=== PATIENT | female | born 1955 | race Two or more races ===

== ENCOUNTER 2024-02-16 07:50 | Day surgery (SDC) | payer OTHER, SELFPAY ==
--- NOTE | 2024-02-12 06:00 | EKG_ITS ---
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
[2024-02-12 12:03] VITALS: BMI 27.8
[2024-02-12 13:12] LABS: Basophils % (Auto) 1 % (0-2.5); Eosinophils # (Auto) 0.1 Thou/mm3 (0.0-0.5); Eosinophils % (Auto) 1 % (0-10); Hematocrit 43.1 % (36.0-46.0); Hemoglobin 14.1 g/dL (12.0-16.0); Immature Granulocytes % (Auto) 0 % (0-0); Immature Granulocytes Auto 0.03 Thou/mm3 (0.00-0.00); Lymphocytes # (Auto) 1.7 Thou/mm3 (1.0-4.8); Lymphocytes % (Auto) 22 % (10-50); Mean Corpuscular HGB Conc 32.7 g/dl (31.0-37.0); Mean Corpuscular Hemoglobin 26.9 pg (25.0-35.0); Mean Corpuscular Volume 82 fL (80-100); Monocytes # (Auto) 0.7 Thou/mm3 (0.0-0.8); Monocytes % (Auto) 9 % (0-12); Neutrophils # (Auto) 5.3 Thou/mm3 (1.8-7.7); Neutrophils % (Auto) 67 % (37-80); Nucleated Red Blood Cell % 0 /100 WBC (0); Platelet Count 270 Thou/mm3 (140-440); RDW Standard Deviation 39.6 fL (36.4-46.3); Red Blood Count 5.24 Miln/mm3 (4.00-5.20); White Blood Count 7.9 Thou/mm3 (3.6-11.0)
[2024-02-12 13:35] LABS: Alanine Aminotransferase 13 U/L (10-49); Albumin, Serum 4.3 gm/dL (3.4-4.8); Albumin/Globulin Ratio 1.3 (1.2-2.2); Alkaline Phosphatase 81 U/L (46-116); Anion Gap 7 (7-16); Aspartate Amino Transferase 17 U/L (0-34); BUN/Creatinine Ratio 21 Ratio (12-20); Bilirubin,Total 0.5 mg/dL (0.3-1.2); Blood Urea Nitrogen 15 mg/dL (9-23); Calcium 9.9 mg/dL (8.3-10.6); Calcium (Corrected) 9.9 mg/dL (8.5-10.1); Carbon Dioxide 26.7 mMol/L (20.0-31.0); Chloride 106 mMol/L (98-107); Creatinine (Component) 0.7 mg/dL (0.6-1.3); Estimated Creatinine Clearance 68.2 mL/min (>60); Globulin 3.2 gm/dL (2.3-3.5); Glucose 122 mg/dL (74-106); INR 0.9 (0.9-1.3); Osmolality,Calculated 281 (275-295); Potassium 3.8 mMol/L (3.4-5.1); Prothrombin Time 10.3 Seconds (9.0-12.2); Sodium 140 mMol/L (136-145); Total Protein 7.5 gm/dL (5.7-8.2); eGFR > 60 See Note
--- NOTE | 2024-02-15 15:21 | SUR.PREOP ---
Neddle localization will be done in ultrasound, comfirm with Alberto.
[2024-02-16] VITALS (9 sets, daily range): BP systolic 133–166; BP diastolic 77–99; PULSE 73–87; RESP 13–20; TEMP 36.1–36.4; O2SAT 95–99; BMI 27.0
--- NOTE | 2024-02-16 | XR_ITS ---
Examination: Mammogram breast tissue specimen TECHNIQUE: Single mammographic view breast tissue specimen February 16, 2024 1350 p.m. INDICATIONS: Status post excision biopsy positive for carcinoma lesion 3:00 position left breast FINDINGS: Nodule is present in the lateral portion of the breast specimen with margins Possible additional nodule in the right portion of the breast IMPRESSION: One and possibly 2 nodules in the breast tissue specimen
--- NOTE | 2024-02-16 | XR_ITS ---
Examination: Mammogram breast tissue specimen TECHNIQUE: Single mammographic view breast tissue specimen Exam date and time: February 16, 2024 1408 hours INDICATIONS: Status post excision suspicious nodule left breast, noted on left breast sonogram December 18, 2023 FINDINGS: Nodule is present in the upper portion of the specimen with margins IMPRESSION: Nodule is present in the upper portion of the specimen with margins
--- NOTE | 2024-02-16 08:26 | XR_ITS ---
Examination: Ultrasound-guided needle localization 11:00 nodule left breast Left breast sonography Exam date and time: 08/17/2023 0943 hours INDICATIONS: Suspicious nodule BI-RADS 4 left breast 11:00 position TECHNIQUE AND FINDINGS: Informed consent provided. Skin prepped over the breast and sterile drape applied hand hygiene 1% lidocaine administered for local anesthesia Utilizing ultrasonographic guidance 5 cm Kopan's needle placed in the suspicious nodule 11:00 position left breast 1 cc methylene blue introduced Require introduced and needle withdrawn Estimated blood loss 1 cc IMPRESSION: Ultrasound-guided needle localization as above
--- NOTE | 2024-02-16 08:28 | XR_ITS ---
Examination: Nuclear medicine lymph glands imaging [place] lymph node study Exam date and time: February 16, 2024 0828 hours INDICATIONS: Biopsy-positive for carcinoma lesion left breast on left breast biopsy study 01/13/2024, preop agent and lymph node dissection TECHNIQUE AND FINDINGS: Informed consent provided. Timeout performed. Skin prepped over the left breast and sterile drape applied hand hygiene 1% lidocaine administered subareolar followed by introduction of 2.0 mCi technetium 99m filtered sulfur colloid No imaging Estimated blood loss 0 cc IMPRESSION: Successful preoperative sentinel lymph node study left breast as above
[2024-02-16] MEDS: RINGERS LACTATED 1000 ML 1,000 ML 20 ML IV (08:44)
--- NOTE | 2024-02-16 14:52 | ESOP_ITS ---
Date of Procedure 02/16/24 Pre Op Diagnosis Infiltrating ductal carcinoma of the left breast at 3 o'clock position Post Op Diagnosis Same Benign lesion at 11 o'clock position on the left breast localized by the radiologist with a guidewire Procedure Partial mastectomy of the infiltrating ductal carcinoma of the left breast with sentinel node biopsy Excision of the suspicious mass at 11 o'clock position on the left breast after localization Findings Patient was found to have biopsy-proven lesion at 3 o'clock position. However the radiologist localized the lesion at 11 o'clock position suspecting that it looks suspicious rather than at 3 o'clock position. The 3 o'clock position nodule was not low. Procedure Description After the patient had an guidewire localization and sentinel node injection at the x-ray she was brought to the operating room. LMA anesthesia was given the left breast and axilla along with the left upper extremity was washed with ChloraPrep solution and draped in a sterile manner. Timeout was performed. Then I started doing the sentinel node biopsy at first. Using a neoprobe I found some activity at the skin crease over the left axilla. I made an incision after injecting local anesthesia with half percent shakira. This incision was about 5 to 6 cm in length and upon dividing the subcutaneous tissue I identified 4 nodes that were positive and showed an uptake by neoprobe. The first node showed an uptake of 900 and others were about 10% of the first 1. Bleeding points were then coagulated carefully and then the axilla was closed with a 3-0 chromic in 2 layers and the skin by 4-0 Monocryl. Then the attention was turned onto the breast where the guidewire localization was unfortunately done to the 11:00 nodule which was more prominent on the ultrasound. However since the biopsy-proven cancer was a 3 o'clock position I made an incision circumareolar areolar fashion and dissected out the tissues. I was able to feel a very tiny nodule and I removed it along the surrounding tissues. An x-ray was obtained to confirm this which was read as radiologist as suspicious nodule. I also asked the pathologist to do a on examination to see if this is cancerous and she felt it was. Then because of the guidewire localization of another nodule I decided to take that out also. Using the same incision I removed the nodule which was approached by using the methylene blue stained tissues. I removed the anterior methylene blue stained tissues along with the guidewire and took an x-ray which showed anterior nodule was removed. It did look benign on the appearance even though it was firm on palpation. Then the bleeding points were controlled and additional tissues were taken from both 11 and 3 o'clock position to make sure the tumor was completely removed. Then a left #10 round Claude-Narayanan drain and closed subcutaneous tissue with 3-0 chromic skin was closed with 4-0 Monocryl and reinforced with 6-0 nylon stitches. Dressing was applied with Adaptic and fluff and compression with extra-large breast binder. Patient tolerated the procedure well and returned to recovery room in stable condition. Anesthesia other Pathology / specimen Other (1. Jennings nodes x 4, #2 lesion at 3 o'clock position, #3 lesion at 11 o'clock position with the guidewire) IVF Infused 800 Estimated Blood Loss 150 Condition Stable Disposition PACU Surgeon Rosina Eaton MD Surgical Staff Operation Date: 02/16/24 12:45 Case Staff Anesthesiologist: Franky Faye RN First Assistant: Mario Lenz
--- NOTE | 2024-02-16 15:02 | SUR.PHASEI ---
Pt arrived to PACU via gurney awake, alert, able to follow commands, breathing unlabored, dressing to left breast clean, dry, and intact with breast binder in place, report from Iwona LYNN and Dr Faye
[2024-02-16] MEDS: fentaNYL CIT INJ 50 mCg/ML AMP 2ML 25 MCG IV (16:02)
--- NOTE | 2024-02-16 16:26 | SUR.PHASEII ---
Pt awake, alert, able to follow commands, breathing unlabored, dressing to left breast clean, dry, and intact with breast binder in place, discharge instructions given with family member present using telephone camp program director Miryam ID# [id number] questions answered, pt able to dress self and ambulate with steady gait to wheelchair, pt discharged via wheelchair with all belongings and copies of discharge paperwork.
== END 2024-02-16 16:26 | disposition home or self-care (01) ==
PROVIDERS: PCP Family Medicine; Referring Provider Surgery; Visit Provider Surgery
PROC: (CPT 19083; principal; 2024-02-16 12:30)
DX: C50.812 Malignant neoplasm of overlapping sites of left female breast (principal); Z01.810 Encounter for preprocedural cardiovascular examination; I10 Essential (primary) hypertension
CPT/HCPCS: 19083; 38500; 38900; 36415; 76098; 80053; 85025; 85610; 85730; 93005; A4648; A4649; A9541; J2250; J2405; J2704; J2765; J3010; J3490; J7120; Q9968

== ENCOUNTER → 2024-03-28 | Outpatient (CLI) | payer OTHER, SELFPAY ==
--- NOTE | 2024-03-28 | XR_ITS ---
Examination: Bone scan whole body, radioisotope Date and time of exam: March 28, 2024 1512 hours INDICATIONS: Diagnosis left breast cancer January 2024, staging Technique: Study has been performed with intravenous administration of 25 mci 99M technetium MDP. Anterior, posterior whole body images are obtained. Images have been obtained including the lower extremities. Findings: Symmetrical isotope accumulation IMPRESSION: No pattern diagnostic for osseous metastatic disease
== END | disposition home or self-care (01) ==
PROVIDERS: PCP Family Medicine; Referring Provider Family Medicine; Visit Provider Family Medicine
DX: C50.112 Malignant neoplasm of central portion of left female breast (principal)
CPT/HCPCS: 78306; A9503

== ENCOUNTER 2024-03-29 13:34 | Outpatient (RCR) | payer OTHER, SELFPAY ==
--- NOTE | 2024-03-20 20:47 | CTCCONSULT_ITS ---
[address] [address] RE: VAN QUINTEROS D.O.B.: 1955 AGE: 68 DATE OF CONSULTATION: 03/16/2024 DIAGNOSIS: New diagnosis of left breast cancer ER/IA positive status postlumpectomy with lymph node d issection showing T1a N0 -stage I 2 mm tumor REFERRING PHYSICIAN: Constantino Gonzalez PRIMARY PHYSICIAN :Constantino Gonzalez REASON FOR CONSULTATION: Follow-up on breast cancer HISTORY OF PRESENT ILLNESS: Patient is 68-year-old woman with likely early stage ER/IA positive left breast cancer. HER2 was neg ative. Patient underwent lumpectomy and is healing from the surgery Patient is here to discuss final report. Patient was never on any hormone replacement therapy. 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 GI: No nausea, vomiting, diarrhea or constipation. CVS: No palpitations or angina pains. Respiratory: No cough, chest pain or shortness of breath. VITAL SIGNS: Date Time PHYSICAL EXAMINATION: Conjunctivae is white Oral cavity is dry. Chest is clear to auscultation. No wheezes or rales audible. CVS: Rhythm regular, no murmurs or gallops present. Abdomen is soft. No hepatosplenomegaly. Extremities: No pedal edema or cyanosis. LABORATORY DATA: Date Time ASSESSMENT: Early stage breast cancer ER/IA positive Patient is status postlumpectomy Final path showed only 2 mm tumor and all sentinel lymph nodes are negative Discussed with her that given her advanced age she is unlikely to get any benefit from radiation I will still place referral to radiation oncology As patient has very small tumor will benefit from 5 years of antiendocrine therapy start on anastrozole 1 mg daily Calcium and vitamin D3 daily with food Bone density scan Patient still have not started her tablet Will see her in 4 weeks to see tolerance to treatment ORDERS: RETURN TO CLINIC: cc: David Gonzalez, Referring: Constantino Gonzalez Electronically Signed {Object.Sanct_Date} at {Object.Sanct_Time} {Object.Sanct_ID*PnP.NameFL@M}, {Object.Sanct_ID*PnP.Suffix@U} Patient: VAN QUINTEROS : 1955 MR#: [id number] Account: [id number] FOLLOW UP NOTE Page 2 of 3
== END 2024-04-02 23:59 | disposition home or self-care (01) ==
LOC: SCTC 13:34
PROVIDERS: PCP Family Medicine; Referring Provider Family Medicine; Visit Provider Radiology Therapeutic Radiology
DX: C50.812 Malignant neoplasm of overlapping sites of left female breast (principal); Z17.0 Estrogen receptor positive status [ER+]; Z17.21 Progesterone receptor positive status; Z17.32 Human epidermal growth factor receptor 2 negative status; Z90.12 Acquired absence of left breast and nipple; Z79.811 Long term (current) use of aromatase inhibitors
CPT/HCPCS: 99212; 99213; G0463

== ENCOUNTER 2024-05-18 11:27 | Outpatient (RCR) | payer MEDICARE, SELFPAY ==
--- NOTE | 2024-08-21 01:54 | CTCFLWUP_ITS ---
Patient: VAN QUINTEROS : 1955 Page 2 of 3 FOLLOW UP NOTE DATE OF SERVICE: 05/18/2024 NAME: VAN QUINTEROS ACCOUNT: [id number] : 1955 AGE: 69 INTERVAL HISTORY: ONCOLOGY HISTORY: DIAGNOSIS: New diagnosis of left breast cancer ER/NH positive status postlumpectomy with lymph node dissection showing T1a N0 -stage I 2 mm tumor DATE OF DIAGNOSIS: PATHOLOGY: STAGE/TNM: TREATMENT HISTORY: Care?Plan Start?Date Cycle Day Intent HISTORY OF PRESENT ILLNESS: Patient is 69-year-old woman with likely early stage ER/NH positive left breast cancer. HER2 was negative. Patient underwent lumpectomy and is healing from the surgery Patient is here to discuss final report. Patient was never on any hormone replacement therapy. 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 anastrozole - 1 mg 1 tab Daily 2. Calcium 600 + D - 600 (1,500)-200 mg-unit 1 tab Daily 3. enalapril maleate - 10 mg 1 tab Daily Medications Last Reconciled by Rere Petersen MA on 05/18/2024 ALLERGIES: codeine sulfate REVIEW OF SYSTEMS: A complete 14-point review of systems was performed and is negative except as noted in interval history. PHYSICAL EXAMINATION: VITAL SIGNS: Temperature?98.2, B/P?131/77, Oxygen?Saturation?96% Weight?147?lbs PAIN: 0 - No pain ECOG Performance Status: 0 - Asymptomatic and fully active GENERAL APPEARANCE: Appears well, in no apparent distress, appropriately interactive. HEENT: Normocephalic, no temporal wasting, normal conjunctiva, no scleral icterus, normal hearing, lips without lesions, neck normal range of motion. CARDIOVASCULAR: Not assessed. PULMONARY: Normal respiratory effort, no respiratory distress or use of accessory muscles, speaking in full sentences, no tachypnea. EXTREMITIES: No pedal edema or cyanosis. SKIN: Normal skin appearance. NEUROLOGIC: Alert and oriented x4. PSHYCHIATRIC: Appropriate affect, mood normal, behavior normal, intact thought and speech. LABORATORY DATA: I have personally reviewed and interpreted each of the patient?s relevant lab tests, abnormal findings are below: Date 02/12/24 ??WHITE?BLOOD?COUNT?(Thou/mm3) 7.9 ??RED?BLOOD?COUNT?(Miln/mm3) 5.24?H ??HEMOGLOBIN?(gm/dl) 14.1 ??HEMATOCRIT?(%) 43.1 ??PLATELET?COUNT?(Thou/mm3) 270 ??NEUTROPHILS?%,?AUTO?(%) 67 ??LYMPH?%,?AUTO?(%) 22 ??NEUTROPHILS,?AUTO?(Thou/mm3) 5.3 ASSESSMENT/PLAN: Early stage breast cancer ER/NH positive Patient is status postlumpectomy Final path showed only 2 mm tumor and all sentinel lymph nodes are negative Discussed with her that given her advanced age she is unlikely to get any benefit from radiation I will still place referral to radiation oncology As patient has very small tumor will benefit from 5 years of antiendocrine therapy start on anastrozole 1 mg daily Calcium and vitamin D3 daily with food Bone scan is negative Bone density scan is pending patient is toleraaitng her medicine well. ORDERS: Cbc,cmp RETURN TO CLINIC: 3 months BILLING AND COMPLIANCE: I reviewed external records from providers outside my specialty as summarized above. I spent a total of 50 minutes on this patient?s care on the day of their visit excluding time spent related to any billed procedures. This time includes time spent with the patient as well as time spent documenting in the medical record, reviewing patients records and tests, obtaining history, placing orders, communicating with other healthcare professionals, counseling the patient, family or caregiver, and/or care coordination for the diagnoses above. Electronically Signed by: Piyush Cannon MD T: 1:51 AM CC: PCP: Constantino Gonzalez Referring: Constantino Gonzalez This document was completed utilizing speech recognition software. Grammatical errors, random word insertions, pronoun errors, and incomplete sentences are an occasional consequence of this system due to software limitations, ambient noise, and hardware issues. Any formal questions or concerns about the content, text or information contained within the body of this dictation should be directly addressed to the provider for clarification.
== END 2024-06-03 23:59 | disposition home or self-care (01) ==
LOC: SCTC 11:27
PROVIDERS: PCP Family Medicine; Referring Provider Family Medicine; Visit Provider Internal Medicine Hematology & Oncology
DX: C50.812 Malignant neoplasm of overlapping sites of left female breast (principal); Z17.0 Estrogen receptor positive status [ER+]; Z17.21 Progesterone receptor positive status; Z17.32 Human epidermal growth factor receptor 2 negative status; Z90.12 Acquired absence of left breast and nipple
CPT/HCPCS: 99212; G0463

== ENCOUNTER → 2024-09-07 | Outpatient (CLI) | payer OTHER, SELFPAY ==
[2024-09-07 10:11] LABS: Alanine Aminotransferase 10 U/L (10-49); Albumin, Serum 4.3 gm/dL (3.4-4.8); Albumin/Globulin Ratio 1.4 (1.2-2.2); Alkaline Phosphatase 71 U/L (46-116); Anion Gap 9 (7-16); Aspartate Amino Transferase 14 U/L (0-34); BUN/Creatinine Ratio 25 Ratio (12-20); Bilirubin,Total 0.5 mg/dL (0.3-1.2); Blood Urea Nitrogen 15 mg/dL (9-23); Carbon Dioxide 26.4 mMol/L (20.0-31.0); Cardiac Risk Estimate 4.7 RATIO (3.7-5.6); Chloride 108 mMol/L (98-107); Cholesterol 199 mg/dL (132-200); Creatinine (Component) 0.6 mg/dL (0.6-1.3); Free T4 (Free Thyroxine) 1.05 ng/dL (0.89-1.76); Glucose 92 mg/dL (74-106); HDL Cholesterol 42 mg/dL (40-60); LDL Cholesterol,Calculated 113 mg/dL (0-130); Osmolality,Calculated 285 (275-295); Sodium 143 mMol/L (136-145); Total Protein 7.3 gm/dL (5.7-8.2); Triglycerides 218 mg/dL (30-150); eGFR > 60 See Note
== END | disposition home or self-care (01) ==
LOC: COPL 08:05
PROVIDERS: PCP Family Medicine; Referring Provider Family Medicine; Visit Provider Family Medicine
DX: E78.1 Pure hyperglyceridemia (principal); E03.2 Hypothyroidism due to medicaments and other exogenous substances; Z13.1 Encounter for screening for diabetes mellitus
CPT/HCPCS: 36415; 80053; 80061; 84439; 84443

== ENCOUNTER 2024-09-17 11:33 | Emergency (ER) | payer OTHER, SELFPAY ==
--- NOTE | 2024-09-17 12:45 | PD.EDRME ---
Rapid Medical Screening Exam RME Arrival date/time: 09/17/24 11:33 Chief Complaint: GI Bleed Time Seen by Provider: 09/17/24 11:48 RME Narrative: This is a 69-year-old female that comes in with complaints of GI bleed that started yesterday. Patient states that she has had multiple bowel movements that bright red blood with clots. Patient complains of some abdominal discomfort. Patient denies any nausea vomiting. Patient has a history of high blood pressure and breast cancer to the right. Patient had surgery last year and is currently on anastrozole. Patient states she did not require chemotherapy because it clotted early. I have greeted and performed a focused initial assessment of this patient. Initial appropriate labs ordered at this time. A comprehensive ED assessment and evaluation of the patient and analysis of all test and completion of medical decision making process will be conducted by additional ED provider.
[2024-09-17 12:48] VITALS: BP 135/75; PULSE 85; RESP 18; TEMP 36.9; O2SAT 97; BMI 27.1
[2024-09-17 13:18] LABS: Basophils % (Auto) 0 % (0-2.5); Eosinophils % (Auto) 0 % (0-10); Hematocrit 37.8 % (36.0-46.0); Hemoglobin 12.9 g/dL (12.0-16.0); Immature Granulocytes % (Auto) 0 % (0-0); Immature Granulocytes Auto 0.03 Thou/mm3 (0.00-0.00); Lymphocytes % (Auto) 18 % (10-50); Mean Corpuscular HGB Conc 34.1 g/dl (31.0-37.0); Mean Corpuscular Hemoglobin 27.2 pg (25.0-35.0); Mean Corpuscular Volume 80 fL (80-100); Monocytes # (Auto) 0.7 Thou/mm3 (0.0-0.8); Monocytes % (Auto) 6 % (0-12); Neutrophils # (Auto) 8.4 Thou/mm3 (1.8-7.7); Neutrophils % (Auto) 75 % (37-80); Nucleated Red Blood Cell % 0 /100 WBC (0); Platelet Count 285 Thou/mm3 (140-440); RDW Standard Deviation 36.8 fL (36.4-46.3); Red Blood Count 4.75 Miln/mm3 (4.00-5.20); White Blood Count 11.2 Thou/mm3 (3.6-11.0)
[2024-09-17 13:34] LABS: Prothrombin Time 10.9 Seconds (9.0-12.2)
[2024-09-17 13:49] LABS: Alanine Aminotransferase 9 U/L (10-49); Albumin, Serum 4.4 gm/dL (3.4-4.8); Albumin/Globulin Ratio 1.4 (1.2-2.2); Alkaline Phosphatase 73 U/L (46-116); Anion Gap 10 (7-16); Aspartate Amino Transferase 14 U/L (0-34); BUN/Creatinine Ratio 22 Ratio (12-20); Bilirubin,Total 0.7 mg/dL (0.3-1.2); Blood Urea Nitrogen 13 mg/dL (9-23); Carbon Dioxide 25.1 mMol/L (20.0-31.0); Chloride 106 mMol/L (98-107); Creatinine (Component) 0.6 mg/dL (0.6-1.3); Estimated Creatinine Clearance 77.3 mL/min (>60); Globulin 3.2 gm/dL (2.3-3.5); Glucose 98 mg/dL (74-106); Osmolality,Calculated 281 (275-295); Potassium 4.1 mMol/L (3.4-5.1); Sodium 141 mMol/L (136-145); Total Protein 7.6 gm/dL (5.7-8.2); eGFR > 60 See Note
--- NOTE | 2024-09-17 14:37 | EDNOTE_ITS ---
ED GI Bleed RME/HPI General Chief complaint: GI Bleed Stated complaint: BLOOD IN STOOL X YESTERDAY Time Seen by Provider: 09/17/24 11:48 Arrival date/time: 09/17/24 11:33 RME / HPI RME / HPI Narrative: 69-year-old female that comes in with complaints of GI bleed that started yesterday. Patient states that she has had multiple bowel movements that bright red blood with clots. Patient complains of some abdominal discomfort. Patient denies any nausea vomiting. Patient has a history of high blood pressure and breast cancer to the right. Patient had surgery last year and is currently on anastrozole. Denies any vomiting. Denies any similar episode in the past. Denies any dizziness. She is not taking any blood thinner. Related Data Home Medications ?Medication ?Instructions ?Recorded ?Confirmed enalapril maleate 10 mg tablet 10 mg PO QDAY 10/18/20 02/16/24 Allergies Allergy/AdvReac Type Severity Reaction Status Date / Time CODEINE AdvReac Mild Anxiety Uncoded 09/17/24 11:35 Review of Systems Review of Systems Narrative Review of Systems: Review of system reviewed and within normal limits except mentioned in HPI ED Exam Narrative Physical exam: VITAL SIGNS: Reviewed. GENERAL APPEARANCE: Alert and interactive, follows commands, no acute distress, HEAD AND FACE: Non-traumatic. ENT: PERRL, pink conjunctivitis, eyelid no trauma, Mucous membrane moist. NECK: Supple, nontender, no nuchal rigidity. CHEST: No tenderness, no crepitus, no paradoxical movement, no retractions. LUNGS: Clear, well ventilated, symmetric, no rales, no wheezing, no ronchi, no stridor, good breath sounds bilaterally. HEART: Regular rate, regular rhythm, no murmur, no gallops. ABDOMEN: Soft, positive bowel sounds, nondistended, no guarding, nontender, no rebound, no masses, RECTAL: Deferred. GENITAL: Deferred. NEUROLOGICAL: Gross motor function intact sensory function intact, Appropriate for age. MUSCULOSKELETAL: low back nontender, full range of motion. EXTREMITIES: Nontender, full range of motion. SKIN: Color pink, dry, no rash, no lacerations, no abrasions, no contusions. LYMPHATICS: Deferred. Course Quality Measures none Orders Category Date Time Status CBC Stat Lab 09/17/24 12:55 Completed Comprehensive Metabolic Panel Stat Lab 09/17/24 12:55 Completed PT [Prothrombin Time with INR] Stat Lab 09/17/24 12:55 Completed Type and Screen Stat Lab 09/17/24 12:55 Completed Vital Signs Vital signs: Vital Signs Temperature 98.4 F 09/17/24 12:48 Pulse Rate 85 09/17/24 12:48 Respiratory Rate 18 09/17/24 12:48 Blood Pressure 135/75 H 09/17/24 12:48 Pulse Oximetry (%) 97 09/17/24 12:48 Oxygen Delivery Method Room Air 09/17/24 12:48 GI Bleed MDM Narrative MDM Narrative:: 69-year-old female that comes in with complaints of GI bleed that started yesterday. Patient states that she has had multiple bowel movements that bright red blood with clots. Patient complains of some abdominal discomfort. Patient denies any nausea vomiting. Patient has a history of high blood pressure and breast cancer to the right. Patient had surgery last year and is currently on anastrozole. Denies any vomiting. Denies any similar episode in the past. Denies any dizziness. She is not taking any blood thinner. Patient's CBC came back unremarkable and there is no sign of anemia. Clinically patient is not having any symptoms. Patient is not taking any blood thinner. Patient was advised to follow-up with PCP and as per referral to GI specialist for outpatient colonoscopy. To rule out the source of the bleeding. Was also advised to return to emergency room for worsening of symptoms. Patient data External records reviewed:: None Clinical information provided by:: patient and family Social determinants that could affect healthcare access:: none Patient has the following chronic illnesses:: Breast cancer, hypertension How is presenting disease/condition affected by chronic disease/condition?: uneffected by Evaluation data The following diagnostics were reviewed and interpreted by me:: lab results Lab and/or radiology exams considered but not ordered:: None Interpretation Summary: See resulted MDM Medications / Prescriptions Medications or Prescriptions considered but not ordered:: None Medication administrations:: None Consultations Consultation(s) initiated? (list below): No Diagnosis GI bleed differential diagnosis: Lower gastrointestinal hemorrhage, hematochezia and melena Most likely diagnosis given after review of the tests above:: BRight red blood per rectum Admission Indicated Admission indicated?: not indicated Admission Request Was there a request for admission?: No Disposition Plan Disposition Plan: Discharge Discharge Attestation Discharge Attestation: The patient and all family members were given an opportunity to ask questions and understood the discharge instructions. Discharge instructions specifically effects, indications for sooner follow up or return to the emergency department, and the expected course of current diagnosis. Patient condition: Stable Discharge Plan Plan Patient Disposition: HOME (Self Care) Discharge Disposition comment: Stable Prescriptions/Referrals Prescriptions/Med Rec: No Action enalapril maleate 10 mg tablet 10 mg PO QDAY Patient Comments: TAKE 1 TABLET BY MOUTH EVERY DAY Referrals: Constantino Gonzalez MD [Primary Care Provider] - In 1 week Problem List Clinical Impression: Bright red blood per rectum Patient/Caregiver Discharge Instructions Discharge Activity: activity as tolerated Education Materials: Understanding Rectal Bleeding Additional Instructions: Thank you for the opportunity for serving you today. You are stable for discharged . You are advised to: Follow-up with your PCP in 1 to 2 days Return to ED for worsening of symptoms Increase oral fluids Please ask your PCP to refer you to GI specialist for possible outpatient colonoscopy Print Language: Citizen Of [place] Stand Alone Forms: [facility] Award Info., Patient Portal Info Letter
== END 2024-09-17 15:11 | disposition home or self-care (01) ==
PROVIDERS: Nurse Practitioner Family; Emergency Provider Emergency Medicine; PCP Family Medicine
DX: K92.1 Melena (principal); Z85.3 Personal history of malignant neoplasm of breast
CPT/HCPCS: 36415; 80053; 85025; 85610; 86850; 86900; 86901; 99283

== ENCOUNTER → 2024-10-18 | Outpatient (CLI) | payer OTHER, SELFPAY ==
--- NOTE | 2024-10-18 13:00 | XR_ITS ---
Examination: Bone densitometry Date and time of exam:October 18, 2024 1300 hours INDICATIONS: Hysterectomy age 38 vitamin D and calcium several months, personal history left breast cancer Technique: Lumbar spine and hip total bone mineralization values of an calculated. Peak reference and age match control results have been displayed. Findings: Lumbar spine total bone mineralization is1.104 gm/cm2. This is 0.5 standard deviations above peak reference. This is 2.7 standard deviations above age-matched controls. Hip total bone mineralization is 1.013 gm/cm2 This is 0.4 standard deviations above peak reference. This is 1.9 standard deviations above age-matched controls Impression: There is normal mineralization based on lumbar spine measurements. There is normal mineralization based on hip measurements Lumbar mineralization is decreased 0.7% compared with October 09, 2022 Hip mineralization is increase 6.4% compared with October 09, 2022
== END | disposition home or self-care (01) ==
LOC: CDIM 12:31
PROVIDERS: PCP Family Medicine; Referring Provider Internal Medicine Hematology & Oncology; Visit Provider Internal Medicine Hematology & Oncology
DX: C50.912 Malignant neoplasm of unspecified site of left female breast (principal)
CPT/HCPCS: 77080

== ENCOUNTER → 2024-11-03 | Outpatient (CLI) | payer OTHER, SELFPAY ==
--- NOTE | 2024-11-03 09:00 | XR_ITS ---
Examination: Diagnostic digital mammography, bilateral Computer aided detection 3-D breast Tomosynthesis, bilateral Date and time of exam: November 03, 2024 at 0901 hours Compared to mammograms dating to October 09, 2022 Technique: Nonmagnified MLO, CC views of the breasts to been obtained, reconstructed from 3-D Tomosynthesis images. R2 computer aided detection program utilized for evaluation of suspicious masses and/or abnormal calcifications. 3-D Tomosynthesis images obtained. Findings: Scattered areas of fibroglandular density. 11 mm nodule partially indistinct margins upper outer left breast mid to anterior depth Benign calcifications Impression: BI-RADS Category 0: Incomplete: Need additional imaging evaluation Recommend follow-up spot tomographic views of 11 mm nodule partially indistinct margins upper outer left breast as well as left breast sonography to complete the workup.
== END | disposition home or self-care (01) ==
LOC: CDIM 08:37
PROVIDERS: Referring Provider Family Medicine; Visit Provider Family Medicine
DX: N63.21 Unspecified lump in the left breast, upper outer quadrant (principal)
CPT/HCPCS: 77062; 77066; G0279

== ENCOUNTER 2024-11-09 10:55 | Day surgery (SDC) | payer OTHER, SELFPAY ==
[2024-11-09] VITALS (11 sets, daily range): BP systolic 108–162; BP diastolic 58–87; PULSE 70–104; RESP 14–20; TEMP 36.3–37.1; O2SAT 95–100; BMI 27.9
[2024-11-09] MEDS: fentaNYL CIT INJ 50 mCg/ML AMP 2ML (ASD USE ONLY) IVP (12:38)
[2024-11-09] MEDS: SODIUM CHLORIDE 0.9% 500 ML 500 ML 20 ML IV (12:38)
[2024-11-09] MEDS: MIDAZOLAM INJ 1 MG/ML VIAL 2 ML (ASD USE ONLY) 2 MG IVP (12:38)
== END 2024-11-09 13:35 | disposition home or self-care (01) ==
PROVIDERS: PCP Family Medicine; Referring Provider Specialist; Visit Provider Specialist
PROC: 0DBE8ZX Excision of Large Intestine, Via Natural or Artificial Opening Endoscopic, Diagnostic (ICD-10-PCS; CPT 45380; principal; 2024-11-09 11:45)
DX: K64.2 Third degree hemorrhoids (principal); K57.31 Diverticulosis of large intestine without perforation or abscess with bleeding; I10 Essential (primary) hypertension; C50.912 Malignant neoplasm of unspecified site of left female breast; Z80.0 Family history of malignant neoplasm of digestive organs
CPT/HCPCS: 45398; A4649; J1200; J2250; J3010; J7999

== ENCOUNTER 2024-11-24 13:09 | Outpatient (RCR) | payer OTHER, SELFPAY ==
--- NOTE | 2024-11-28 06:37 | CTCFLWUP_ITS ---
Patient: VAN QUINTEROS : 1955 Page 3 of 5 FOLLOW UP NOTE DATE OF SERVICE: 11/24/2024 NAME: VAN QUINTEROS ACCOUNT: [id number] : 1955 AGE: 69 INTERVAL HISTORY: Subjective: Van Quinteros, a Macedonian-speaking patient with a history of breast cancer, presents for follow-up regarding an 11-millimeter nodule found on a recent mammogram of her left breast. She has an ultrasound appointment scheduled for December 01 to further evaluate this finding. Ms. Quinteros reports a recent episode of rectal bleeding that prompted her to visit the emergency room. She underwent a colonoscopy due to this concern, but the results were negative for any significant findings. The patient expresses that she was very scared when she noticed the bleeding. She has been experiencing constipation and has been diagnosed with third-degree hemorrhoids and extensive diverticulosis. Regarding her breast cancer treatment, Ms. Quinteros is currently taking anastrozole and reports no side effects from the medication. She mentions taking vitamin D daily with lunch and dinner. A recent bone density scan revealed some weakness in her bones. Medical History - Diverticulosis of the intestine - 3rd-degree hemorrhoids - Constipation - Osteopenia (implied by Bones are a little bit weak ) - History of rectal bleeding, attributed to hemorrhoids Surgical History - Colonoscopy (date not specified) Medications and Supplements - Anastrozole - Vitamin D - Takes every day with lunch and dinner Social History - Diet: Reports not drinking a lot of water and not eating many vegetables. Current diet includes meat, tortillas, rice, and beans. - Language: Does not speak Armenian, requires diplomatic interpreter/translator Review of Systems Gastrointestinal: Positive for constipation, hemorrhoids, and rectal bleeding. Objective: Laboratory, Imaging, and Diagnostic Test Results - Mammogram: 11-millimeter nodule in the left breast - Colonoscopy: Negative for abnormalities - Bone density scan: Bones reported as a little bit weak ONCOLOGY HISTORY: DIAGNOSIS: New diagnosis of left breast cancer ER/DE positive status postlumpectomy with lymph node dissection showing T1a N0 -stage I 2 mm tumor DATE OF DIAGNOSIS: STAGE/TNM: TREATMENT HISTORY: Care?Plan Start?Date Cycle Day Intent HISTORY OF PRESENT ILLNESS: Patient is 69-year-old woman with likely early stage ER/DE positive left breast cancer. HER2 was negative. Patient underwent lumpectomy and is healing from the surgery Patient is here to discuss final report. Patient was never on any hormone replacement therapy. 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 anastrozole - 1 mg 1 tab Daily 2. Calcium 600 + D - 600 (1,500)-200 mg-unit 1 tab Daily 3. enalapril maleate - 10 mg 1 tab Daily Medications Last Reconciled by Christie Ford MA on 11/24/2024 ALLERGIES: codeine sulfate REVIEW OF SYSTEMS: A complete 14-point review of systems was performed and is negative except as noted in interval history. PHYSICAL EXAMINATION: VITAL SIGNS: Temperature?99.5, B/P?126/72, Oxygen?Saturation?99% PAIN: 0 - No pain GENERAL APPEARANCE: Appears well, in no apparent distress, appropriately interactive. HEENT: Normocephalic, no temporal wasting, normal conjunctiva, no scleral icterus, normal hearing, lips without lesions, neck normal range of motion. CARDIOVASCULAR: Not assessed. PULMONARY: Normal respiratory effort, no respiratory distress or use of accessory muscles, speaking in full sentences, no tachypnea. EXTREMITIES: No pedal edema or cyanosis. SKIN: Normal skin appearance. NEUROLOGIC: Alert and oriented x4. PSHYCHIATRIC: Appropriate affect, mood normal, behavior normal, intact thought and speech. LABORATORY DATA: I have personally reviewed and interpreted each of the patient?s relevant lab tests, abnormal findings are below: Date 02/12/24 09/07/24 09/17/24 ??WHITE?BLOOD?COUNT?(Thou/mm3) 7.9 ? 11.2?H ??RED?BLOOD?COUNT?(Miln/mm3) 5.24?H ? 4.75 ??HEMOGLOBIN?(gm/dl) 14.1 ? 12.9 ??HEMATOCRIT?(%) 43.1 ? 37.8 ??PLATELET?COUNT?(Thou/mm3) 270 ? 285 ??NEUTROPHILS?%,?AUTO?(%) 67 ? 75 ??LYMPH?%,?AUTO?(%) 22 ? 18 ??NEUTROPHILS,?AUTO?(Thou/mm3) 5.3 ? 8.4?H ??GLUCOSE,RANDOM?(mg/dL) ? 92 98 ??BLOOD?UREA?NITROGEN?(mg/dL) ? 15 13 ??CREATININE?(mg/dL) ? 0.60 0.60 ??SODIUM?(mmol/L) ? 143 141 ??POTASSIUM?(mmol/L) ? 4.0 4.1 ??CHLORIDE?(mmol/L) ? 108?H 106 ??CrCl?(CandG)?(ml/min) ? 76.13 76.13 ??AST/SGOT?(Unit/L) ? 14 14 ??ALT/SGPT?(Unit/L) ? 10 9?L ??ALKALINE?PHOSPHATASE?(Unit/L) ? 71 73 ??BILIRUBIN,?TOTAL?(mg/dL) ? 0.5 0.7 ??PROTEIN?TOTAL?(gm/dl) ? 7.3 7.6 ??ALBUMIN,?SERUM?(gm/dl) ? 4.3 4.4 ??GLOBULIN?(gm/dl) ? 3.0 3.2 ??ALBUMIN/GLOBULIN?RATIO ? 1.4 1.4 ??CALCIUM,?SERUM?(mg/dL) ? 9.0 9.0 ??CALCIUM?SERUM?(CORRECTED)?(mg/dL) ? 9.0 9.0 ASSESSMENT/PLAN: Early stage breast cancer ER/DE positive Patient is status postlumpectomy Final path showed only 2 mm tumor and all sentinel lymph nodes are negative Discussed with her that given her advanced age she is unlikely to get any benefit from radiation I will still place referral to radiation oncology As patient has very small tumor will benefit from 5 years of antiendocrine therapy start on anastrozole 1 mg daily Calcium and vitamin D3 daily with food Bone scan is negative Bone density scan is pending patient is toleraaitng her medicine well. Breast nodule Assessment: 11-millimeter nodule identified in the left breast on mammogram. Ultrasound has been ordered for further evaluation. Patient has an appointment scheduled for December 01, 2024 for the ultrasound. Plan: - Ultrasound of left breast scheduled for December 01, 2024 - Follow up on ultrasound results Rectal bleeding Assessment: Patient reported recent episode of rectal bleeding, which prompted a colonoscopy. Colonoscopy results were negative for any significant findings. Examination revealed 3rd-degree hemorrhoids and extensive diverticulosis, likely contributing to the bleeding. The bleeding is assessed to be from hemorrhoids rather than internal sources. Plan: - Apply Vaseline to perianal area for hard stools - Dietary modifications: - Increase vegetable intake - Reduce meat consumption - Incorporate quinoa and soaked luke seeds - Increase apple consumption - Consume tortillas with vegetables instead of rice and beans - Increase water intake Osteopenia Assessment: Bone density scan reveals slightly weak bones. Patient is currently taking daily vitamin D supplements. Plan: - Continue daily vitamin D supplementation - Obtain dental clearance - Plan for bone-strengthening medication infusion after dental clearance - Provide dental clearance form Breast cancer Assessment: Patient is on anastrozole for breast cancer treatment. No reported side effects from the medication. Plan: - Continue anastrozole - Follow-up appointment in 3 months RETURN TO CLINIC: I reviewed the diagnosis, prognosis, and recommended treatment/procedure options with the patient (and/or their legal high school admissions representative), including the potential benefits, risks, side effects and alternative therapies. We also discussed the option of no treatment and the possibility of clinical trial participation, if applicable. All questions were addressed, and they demonstrated understanding. They provided informed consent to proceed with the proposed plan of care. BILLING AND COMPLIANCE: I reviewed external records from providers outside my specialty as summarized above. I spent a total of 50 minutes on this patient?s care on the day of their visit excluding time spent related to any billed procedures. This time includes time spent with the patient as well as time spent documenting in the medical record, reviewing patients records and tests, obtaining history, placing orders, communicating with other healthcare professionals, counseling the patient, family or caregiver, and/or care coordination for the diagnoses above. Electronically Signed by: Piyush Cannon MD T: 6:35 AM CC: PCP: Constantino Gonzalez Referring: Constantino Gonzalez This document was completed utilizing speech recognition software. Grammatical errors, random word insertions, pronoun errors, and incomplete sentences are an occasional consequence of this system due to software limitations, ambient noise, and hardware issues. Any formal questions or concerns about the content, text or information contained within the body of this dictation should be directly addressed to the provider for clarification.
== END 2024-12-01 23:59 | disposition home or self-care (01) ==
LOC: SCTC 13:09
PROVIDERS: PCP Family Medicine; Referring Provider Family Medicine; Visit Provider Internal Medicine Hematology & Oncology
DX: C50.812 Malignant neoplasm of overlapping sites of left female breast (principal); Z17.0 Estrogen receptor positive status [ER+]; Z17.21 Progesterone receptor positive status; Z17.32 Human epidermal growth factor receptor 2 negative status; Z90.12 Acquired absence of left breast and nipple; N63.21 Unspecified lump in the left breast, upper outer quadrant; K62.5 Hemorrhage of anus and rectum; M85.80 Other specified disorders of bone density and structure, unspecified site; Z79.811 Long term (current) use of aromatase inhibitors
CPT/HCPCS: 99212; G0463

== ENCOUNTER → 2024-12-01 | Outpatient (CLI) | payer OTHER, SELFPAY ==
--- NOTE | 2024-12-01 14:30 | XR_ITS ---
Examination: Breast ultrasound, unilateral, left Date and time of exam: December 01, 2024 1430 hours INDICATIONS: Mammogram November 03, 2024 11 mm nodule partially indistinct margins upper outer left breast Technique: Real-time burdick scale ultrasonographic imaging performed left breast including all 4 quadrants as well as nipple retroareolar and axillary region. Findings: 2:00 nodule 9 x 7 mm lobular margins 3:00 area of probable scar formation at the lumpectomy site 15 x 13 mm 3:00 cyst 8 x 5 mm 11:00 nodule lobular margins 13 x 10 mm IMPRESSION: BI-RADS Category 3: Probably benign findings One additional 6 month left breast sonogram follow-up strongly recommended to document stability of nodules described above
--- NOTE | 2024-12-01 15:15 | XR_ITS ---
Examination: Diagnostic digital mammography, unilateral, left Computer aided detection 3-D breast Tomosynthesis, unilateral Date and time of exam: December 01, 2024 1430 hours INDICATIONS: Mammogram November 03, 2024 11 mm nodule upper outer left breast Technique: Nonmagnified MLO, CC views of the left breast have been obtained, reconstructed from 3-D Tomosynthesis images. R2 computer aided detection program utilized for evaluation of suspicious masses and/or abnormal calcifications. 3-D Tomosynthesis images obtained. Findings: Scattered areas of fibroglandular density. Extensive retroareolar density on the spot compression MLO view which may represent scar formation from the patient's lumpectomy The left breast sonogram today better demonstrates 11:00 nodule lobular margins 13 x 10 mm in 2:00 nodule 9 x 7 mm Impression: BI-RADS category 3: Probably benign findings One additional 6 month left breast sonogram follow-up strongly recommended to document stability of 2:00 and 11:00 nodules left breast and probable scar formation 3:00 left breast at the lumpectomy site
== END | disposition home or self-care (01) ==
LOC: CDIM 14:07
PROVIDERS: Referring Provider Family Medicine; Visit Provider Family Medicine
DX: R92.332 Mammographic heterogeneous density, left breast (principal); N63.21 Unspecified lump in the left breast, upper outer quadrant; N63.22 Unspecified lump in the left breast, upper inner quadrant
CPT/HCPCS: 76641; 77061; 77065; G0279

== ENCOUNTER → 2025-02-20 | Outpatient (CLI) | payer OTHER, SELFPAY ==
[2025-02-20 09:35] LABS: Basophils # (Auto) 0.1 Thou/mm3 (0.0-0.2); Basophils % (Auto) 1 % (0-2.5); Eosinophils # (Auto) 0.2 Thou/mm3 (0.0-0.5); Eosinophils % (Auto) 2 % (0-10); Hematocrit 35.1 % (36.0-46.0); Hemoglobin 10.1 g/dL (12.0-16.0); Immature Granulocytes Auto 0.02 Thou/mm3 (0.00-0.00); Lymphocytes # (Auto) 2.5 Thou/mm3 (1.0-4.8); Lymphocytes % (Auto) 30 % (10-50); Mean Corpuscular HGB Conc 28.8 g/dl (31.0-37.0); Mean Corpuscular Hemoglobin 18.9 pg (25.0-35.0); Mean Corpuscular Volume 66 fL (80-100); Monocytes # (Auto) 0.8 Thou/mm3 (0.0-0.8); Monocytes % (Auto) 10 % (0-12); Neutrophils # (Auto) 4.6 Thou/mm3 (1.8-7.7); Neutrophils % (Auto) 57 % (37-80); Nucleated Red Blood Cell # 0.00 Thou/mm3 (0.00-0.00); Nucleated Red Blood Cell % 0 /100 WBC (0); Platelet Count 337 Thou/mm3 (140-440); RDW Standard Deviation 50.1 fL (36.4-46.3); Red Blood Count 5.33 Miln/mm3 (4.00-5.20); White Blood Count 8.2 Thou/mm3 (3.6-11.0)
[2025-02-20 09:47] LABS: Alanine Aminotransferase 10 U/L (10-49); Albumin, Serum 4.3 gm/dL (3.4-4.8); Albumin/Globulin Ratio 1.4 (1.2-2.2); Alkaline Phosphatase 86 U/L (46-116); Anion Gap 9 (7-16); Aspartate Amino Transferase 17 U/L (0-34); BUN/Creatinine Ratio 17 Ratio (12-20); Bilirubin,Total 0.3 mg/dL (0.3-1.2); Blood Urea Nitrogen 10 mg/dL (9-23); Calcium 9.3 mg/dL (8.3-10.6); Calcium (Corrected) 9.3 mg/dL (8.5-10.1); Carbon Dioxide 26.7 mMol/L (20.0-31.0); Chloride 107 mMol/L (98-107); Creatinine (Component) 0.6 mg/dL (0.6-1.3); Globulin 3.0 gm/dL (2.3-3.5); Glucose 92 mg/dL (74-106); Osmolality,Calculated 283 (275-295); Potassium 4.1 mMol/L (3.4-5.1); Sodium 143 mMol/L (136-145); Total Protein 7.3 gm/dL (5.7-8.2); eGFR > 60 See Note
[2025-02-20 10:06] LABS: CA 15-3 8.4 U/mL (<32.4)
[2025-02-20 16:27] LABS: Path Review Blood Smear Sent to Pathologist
== END | disposition home or self-care (01) ==
LOC: SCTO 08:38
PROVIDERS: PCP Family Medicine; Referring Provider Internal Medicine Hematology & Oncology; Visit Provider Internal Medicine Hematology & Oncology
DX: C50.912 Malignant neoplasm of unspecified site of left female breast (principal)
CPT/HCPCS: 36415; 80053; 85025; 86300

== ENCOUNTER 2025-02-27 14:25 | Outpatient (RCR) | payer OTHER, SELFPAY ==
--- NOTE | 2025-03-06 11:45 | CTCFLWUP_ITS ---
Patient: VAN QUINTEROS : 1955 Page 3 of 6 FOLLOW UP NOTE DATE OF SERVICE: 02/27/2025 NAME: VAN QUINTEROS ACCOUNT: [id number] : 1955 AGE: 69 INTERVAL HISTORY: Subjective: Van Quinteros, a Japanese-speaking patient with a history of breast cancer, presents for follow-up regarding an 11-millimeter nodule found on a recent mammogram of her left breast. She has an ultrasound repeated which showed stable finding and advise is to repeat ultrasound in 6 months Ms. Quinteros reports a recent episode of rectal bleeding that prompted her to visit the emergency room. She underwent a colonoscopy due to this concern, but the results were negative for any significant findings. The patient expresses that she was very scared when she noticed the bleeding. She has been experiencing constipation and has been diagnosed with third-degree hemorrhoids and extensive diverticulosis. Regarding her breast cancer treatment, Ms. Quinteros is currently taking anastrozole and reports no side effects from the medication. She mentions taking vitamin D daily with lunch and dinner. A recent bone density scan revealed normal bone density but decreased than previously . Medical History - Diverticulosis of the intestine - 3rd-degree hemorrhoids - Constipation - Osteopenia (implied by Bones are a little bit weak ) - History of rectal bleeding, attributed to hemorrhoids Surgical History - Colonoscopy (date not specified) Medications and Supplements - Anastrozole - Vitamin D - Takes every day with lunch and dinner Social History - Diet: Reports not drinking a lot of water and not eating many vegetables. Current diet includes meat, tortillas, rice, and beans. - Language: Does not speak Telugu, requires button sewer Review of Systems Gastrointestinal: Positive for constipation, hemorrhoids, and rectal bleeding. Objective: Laboratory, Imaging, and Diagnostic Test Results - Mammogram: 11-millimeter nodule in the left breast - Colonoscopy: Negative for abnormalities - Bone density scan: Bones reported as a little bit weak ONCOLOGY HISTORY: DIAGNOSIS: New diagnosis of left breast cancer ER/MO positive status postlumpectomy with lymph node dissection showing T1a N0 -stage I 2 mm tumor DATE OF DIAGNOSIS: 01/13/24 STAGE/TNM: Stage 1 left breast cancer ER/MO positive left breast cancer HER2 was negative. Patient underwent lumpectomy TREATMENT HISTORY: Care?Plan Start?Date Cycle Day Intent HISTORY OF PRESENT ILLNESS: Patient is 69-year-old woman with likely early stage ER/MO positive left breast cancer. HER2 was negative. Patient underwent lumpectomy . 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 anastrozole - 1 mg 1 tab Daily 2. Calcium 600 + D - 600 (1,500)-200 mg-unit 1 tab Daily 3. enalapril maleate - 20 mg 1 tab Daily 4. ferrous gluconate - 324 mg (37.5 mg iron) 1 tab every other day Medications Last Reconciled by Christie Ford MA on 11/24/2024 ALLERGIES: codeine sulfate REVIEW OF SYSTEMS: A complete 14-point review of systems was performed and is negative except as noted in interval history. PHYSICAL EXAMINATION: VITAL SIGNS: Temperature?98.9, B/P?135/75, Oxygen?Saturation?97% Weight?156?lbs PAIN: 3 - Between mild and moderate pain ECOG Performance Status: 0 - Asymptomatic and fully active GENERAL APPEARANCE: Appears well, in no apparent distress, appropriately interactive. HEENT: Normocephalic, no temporal wasting, normal conjunctiva, no scleral icterus, normal hearing, lips without lesions, neck normal range of motion. CARDIOVASCULAR: Not assessed. PULMONARY: Normal respiratory effort, no respiratory distress or use of accessory muscles, speaking in full sentences, no tachypnea. EXTREMITIES: No pedal edema or cyanosis. SKIN: Normal skin appearance. NEUROLOGIC: Alert and oriented x4. PSHYCHIATRIC: Appropriate affect, mood normal, behavior normal, intact thought and speech. LABORATORY DATA: I have personally reviewed and interpreted each of the patient?s relevant lab tests, abnormal findings are below: Date 09/17/24 02/20/25 02/27/25 ??WHITE?BLOOD?COUNT?(Thou/mm3) 11.2?H 8.2 ? ??RED?BLOOD?COUNT?(Miln/mm3) 4.75 5.33?H ? ??HEMOGLOBIN?(gm/dl) 12.9 10.1?L ? ??HEMATOCRIT?(%) 37.8 35.1?L ? ??PLATELET?COUNT?(Thou/mm3) 285 337 ? ??NEUTROPHILS?%,?AUTO?(%) 75 57 ? ??LYMPH?%,?AUTO?(%) 18 30 ? ??NEUTROPHILS,?AUTO?(Thou/mm3) 8.4?H 4.6 ? ??GLUCOSE,RANDOM?(mg/dL) ? 92 ? ??BLOOD?UREA?NITROGEN?(mg/dL) ? 10 ? ??CREATININE?(mg/dL) ? 0.60 ? ??SODIUM?(mmol/L) ? 143 ? ??POTASSIUM?(mmol/L) ? 4.1 ? ??CHLORIDE?(mmol/L) ? 107 ? ??CrCl?(CandG)?(ml/min) ? 76.13 ? ??AST/SGOT?(Unit/L) ? 17 ? ??ALT/SGPT?(Unit/L) ? 10 ? ??ALKALINE?PHOSPHATASE?(Unit/L) ? 86 ? ??BILIRUBIN,?TOTAL?(mg/dL) ? 0.3 ? ??PROTEIN?TOTAL?(gm/dl) ? 7.3 ? ??ALBUMIN,?SERUM?(gm/dl) ? 4.3 ? ??GLOBULIN?(gm/dl) ? 3.0 ? ??ALBUMIN/GLOBULIN?RATIO ? 1.4 ? ??CALCIUM,?SERUM?(mg/dL) ? 9.3 ? ??CALCIUM?SERUM?(CORRECTED)?(mg/dL) ? 9.3 ? ??TOTAL?IRON?BINDING?CAP?(S*)?(mcg/dL) ? ? 454?H ??UNBOUND?IBC?(mcg/dL) ? ? 433?H ASSESSMENT/PLAN: Early stage breast cancer ER/MO positive Patient is status postlumpectomy Final path showed only 2 mm tumor and all sentinel lymph nodes are negative Discussed with her that given her advanced age she is unlikely to get any benefit from radiation start on anastrozole 1 mg daily Calcium and vitamin D3 daily with food Bone scan is negative Bone density normal patient is toleraaitng her medicine well. Breast nodule Assessment: 11-millimeter nodule identified in the left breast on mammogram. Ultrasound has been ordered for further evaluation. Patient has an appointment scheduled for December 01, 2024 for the ultrasound. - Ultrasound of left breast for December 01, 2024 is negative - Rectal bleeding Assessment: Patient reported recent episode of rectal bleeding, which prompted a colonoscopy. Colonoscopy results were negative for any significant findings. Examination revealed 3rd-degree hemorrhoids and extensive diverticulosis, likely contributing to the bleeding. The bleeding is assessed to be from hemorrhoids rather than internal sources. Plan: - Apply Vaseline to perianal area for hard stools - Dietary modifications: - Increase vegetable intake - Reduce meat consumption - Incorporate quinoa and soaked luke seeds - Increase apple consumption - Consume tortillas with vegetables instead of rice and beans - Increase water intake Osteopenia Assessment: Bone density scan reveals slightly weak bones. Patient is currently taking daily vitamin D supplements. Plan: - Continue daily vitamin D supplementation - Obtain dental clearance - Plan for bone-strengthening medication infusion after dental clearance - Provide dental clearance form Breast cancer Assessment: Patient is on anastrozole for breast cancer treatment. No reported side effects from the medication. Plan: - Continue anastrozole - Follow-up appointment in 3 months ORDERS: Order # Description [id number] Comprehensive Metabolic Panel - 12 + CBC with Auto Diff + CA 15-3 [id number] MD Follow Up 6 Month RETURN TO CLINIC: I reviewed the diagnosis, prognosis, and recommended treatment/procedure options with the patient (and/or their legal paper sales representative), including the potential benefits, risks, side effects and alternative therapies. We also discussed the option of no treatment and the possibility of clinical trial participation, if applicable. All questions were addressed, and they demonstrated understanding. They provided informed consent to proceed with the proposed plan of care. BILLING AND COMPLIANCE: I reviewed external records from providers outside my specialty as summarized above. I spent a total of 50 minutes on this patient?s care on the day of their visit excluding time spent related to any billed procedures. This time includes time spent with the patient as well as time spent documenting in the medical record, reviewing patients records and tests, obtaining history, placing orders, communicating with other healthcare professionals, counseling the patient, family or caregiver, and/or care coordination for the diagnoses above. Electronically Signed by: Piyush Cannon MD T: 11:43 AM CC: PCP: Constantino Gonzalez Referring: Constantino Gonzalez This document was completed utilizing speech recognition software. Grammatical errors, random word insertions, pronoun errors, and incomplete sentences are an occasional consequence of this system due to software limitations, ambient noise, and hardware issues. Any formal questions or concerns about the content, text or information contained within the body of this dictation should be directly addressed to the provider for clarification.
== END 2025-03-03 23:59 | disposition home or self-care (01) ==
LOC: SCTC 14:25
PROVIDERS: PCP Family Medicine; Referring Provider Family Medicine; Visit Provider Internal Medicine Hematology & Oncology
DX: C50.812 Malignant neoplasm of overlapping sites of left female breast (principal); Z17.0 Estrogen receptor positive status [ER+]; Z17.21 Progesterone receptor positive status; Z17.32 Human epidermal growth factor receptor 2 negative status; Z90.12 Acquired absence of left breast and nipple; Z79.811 Long term (current) use of aromatase inhibitors; K64.2 Third degree hemorrhoids; K57.90 Diverticulosis of intestine, part unspecified, without perforation or abscess without bleeding
CPT/HCPCS: 99213; G0463

== ENCOUNTER → 2025-02-27 | Outpatient (CLI) | payer OTHER, SELFPAY ==
[2025-02-27 20:54] LABS: Folate 22.41 ng/mL (>5.38); Vitamin B12 561 pg/mL (211-911)
[2025-02-27 20:55] LABS: Ferritin 9 ng/mL (7.3-270.7); Iron 21 mcg/dL (50-170); Percent Iron Saturation 4 % (20-55); Total Iron Binding Capacity 454 mcg/dL (250-425); Unsaturated Iron Binding 433 (225-295)
== END | disposition home or self-care (01) ==
LOC: COPL 16:12
PROVIDERS: PCP Family Medicine; Referring Provider Internal Medicine Hematology & Oncology; Visit Provider Internal Medicine Hematology & Oncology
DX: C50.912 Malignant neoplasm of unspecified site of left female breast (principal)
CPT/HCPCS: 36415; 82607; 82728; 82746; 83540; 83550

== ENCOUNTER → 2025-04-03 | Outpatient (CLI) | payer OTHER, SELFPAY ==
--- NOTE | 2025-04-03 11:15 | XR_ITS ---
Examination: Screening digital mammography, bilateral Computer aided detection 3-D breast Tomosynthesis, bilateral Date and time of exam: April 03, 2025, 1057 hours, compared to mammograms dating to December 14, 2023 Indication: Screening Technique: Nonmagnified MLO, CC views of the breasts to been obtained, reconstructed from 3-D Tomosynthesis images. R2 computer aided detection program utilized for evaluation of suspicious masses and/or abnormal calcifications. 3-D Tomosynthesis images obtained. Findings: Scattered areas of fibroglandular density Again noted extensive scar formation retroareolar region left breast which may be related to the patient's lumpectomy for left breast cancer Nodule nipple level left breast on the cc view is again depicted Impression: BI-RADS Category 0: Incomplete: Need additional imaging evaluation Repeat left breast sonography follow-up is needed to document stability of 2:00 nodule 9 x 7 mm, 3:00 probable scar formation at lumpectomy site, 15 x 13 mm and 11:00 nodule lobular margins 13 x 10 mm noted on left breast sonogram December 01, 2024
== END | disposition home or self-care (01) ==
LOC: CDIM 10:50
PROVIDERS: PCP Family Medicine; Referring Provider Internal Medicine Hematology & Oncology; Visit Provider Internal Medicine Hematology & Oncology
DX: Z12.31 Encounter for screening mammogram for malignant neoplasm of breast (principal); R92.8 Other abnormal and inconclusive findings on diagnostic imaging of breast; N63.21 Unspecified lump in the left breast, upper outer quadrant; N63.22 Unspecified lump in the left breast, upper inner quadrant; C50.912 Malignant neoplasm of unspecified site of left female breast
CPT/HCPCS: 77063; 77067

== ENCOUNTER → 2025-04-13 | Outpatient (CLI) | payer OTHER, SELFPAY ==
--- NOTE | 2025-04-13 | XR_ITS ---
Examination: Wrist, right 3 views Technique: Wrist AP, oblique, lateral 3 views Date and time of exam: April 13, 2025, 12:12 p.m. INDICATION: Right wrist pain beginning 3 weeks ago. FINDINGS: Mild osteoarthritis radiocarpal, navicular trapezium, first carpometacarpal joints No fractures or avascular necrosis IMPRESSION: Mild osteoarthritis
== END | disposition home or self-care (01) ==
PROVIDERS: PCP Family Medicine; Referring Provider Family Medicine; Visit Provider Family Medicine
DX: M19.031 Primary osteoarthritis, right wrist (principal)
CPT/HCPCS: 73110